=== PATIENT | female | born 1955 | race Hispanic/Latino ===

== ENCOUNTER → 2017-10-02 | Outpatient (CLI) | payer BC | END | disposition home or self-care (01) | LOC: RAH 09-25 07:50 | PROVIDERS: ATTEND Family Medicine | DX: N63.20 Unspecified lump in the left breast, unspecified quadrant (principal); N63.10 Unspecified lump in the right breast, unspecified quadrant; N64.4 Mastodynia; R92.2 Inconclusive mammogram | CPT/HCPCS: 76641; 77066 ==

== ENCOUNTER → 2017-10-24 | Outpatient (CLI) | payer BC ==
[2017-10-24 10:59] LABS: CREATININE 0.8 mg/dL (0.5-1.5)
== END ==
LOC: LAB 10:10
PROVIDERS: ATTEND Student in an Organized Health Care Education/Training Program
DX: D48.62 Neoplasm of uncertain behavior of left breast (principal)
CPT/HCPCS: 36415; 82565; 84520

== ENCOUNTER → 2018-06-18 | Outpatient (CLI) | payer BC | END | disposition home or self-care (01) | LOC: RAH 08:21 | PROVIDERS: ATTEND Family Medicine | DX: K44.9 Diaphragmatic hernia without obstruction or gangrene (principal); K21.9 Gastro-esophageal reflux disease without esophagitis; K22.4 Dyskinesia of esophagus; Z90.49 Acquired absence of other specified parts of digestive tract | CPT/HCPCS: 74240; 76700 ==